=== PATIENT | male | born 1960 | race Caucasian/White ===

== ENCOUNTER 2021-05-13 07:38 | Observation (INO) ==
[2021-05-13] MEDS ORDERED: ONDANSETRON 4 MG/2 ML VIAL IV STA (07:54)
[2021-05-13] MEDS ORDERED: HYDROmorphone 2 MG/1 ML VIAL IV STA ×2 (07:54→08:34)
[2021-05-13 08:03] LABS: Basophils % 0.3 % (0.0-0.8); Eosinophils # 0.1 10*3/uL (0.0-0.87); Hematocrit 43.7 VOL% (42.0-52.0); Hemoglobin 14.6 GM/DL (14.0-18.0); Immature Granulocytes % 0.6 %; Immature Granulocytes Absolute 0.05 #; Lymphocytes # 1.4 10*3/uL (1.4-4.0); Mean Corpuscular HGB Conc 33.4 GM/DL (32-36); Mean Corpuscular Volume 89.9 FL (87-102); Mean Platelet Volume 9.1 FL (9.6-12.0); Neutrophils % 77.1 % (38.7-73.9); Platelet Count 230 T/CUMM (130-400); Red Blood Count 4.86 MC/CUMM (3.8-5.5); Red Cell Distribution Width 12.4 % (9.3-17.3); White Blood Count 8.9 T/CUMM (4-12)
[2021-05-13 08:35] LABS: Albumin 3.9 G/DL (3.4-5.0); Bilirubin,Total 0.6 MG/DL (0.20-1.00); Calcium 8.8 MG/DL (8.5-10.1); Potassium 3.8 MMOL/L (3.5-5.1); Total Protein 7.7 G/DL (6.4-8.2)
[2021-05-13] MEDS ORDERED: ALUM/MAG/SIMETH/LIDO VISC 1:1 30 ML BOTTLE PO STA (12:48)
[2021-05-13] MEDS ORDERED: KETOROLAC 30 MG/1 ML VIAL IV STA (13:34)
[2021-05-13] MEDS ORDERED: ONDANSETRON 4 MG/2 ML VIAL IV PRN (16:14)
[2021-05-13] MEDS: DEXTROSE 5% NACL 0.45% 1,000 ML IV SCH (19:12)
[2021-05-13] MEDS: HYDROmorphone 2 MG/1 ML VIAL IV PRN (19:54)
[2021-05-14] MEDS: HYDROmorphone 2 MG/1 ML VIAL IV PRN ×2 (00:12→04:35)
[2021-05-14] MEDS: DEXTROSE 5% NACL 0.45% 1,000 ML IV SCH (03:43)
[2021-05-14 05:43] LABS: Basophils % 0.2 % (0.0-0.8); Hematocrit 42.1 VOL% (42.0-52.0); Immature Granulocytes % 0.5 %; Immature Granulocytes Absolute 0.08 #; Lymphocytes # 1.2 10*3/uL (1.4-4.0); Lymphocytes % 7.6 % (21.2-54.2); Mean Corpuscular HGB Conc 33.3 GM/DL (32-36); Mean Corpuscular Volume 91.3 FL (87-102); Mean Platelet Volume 10.7 FL (9.6-12.0); Monocytes % 7.1 % (1.7-12.7); Neutrophils % 84.6 % (38.7-73.9); Red Blood Count 4.61 MC/CUMM (3.8-5.5); Red Cell Distribution Width 12.4 % (9.3-17.3)
[2021-05-14 06:10] LABS: Platelet Count 152 T/CUMM (130-400); White Blood Count 15.6 T/CUMM (4-12)
[2021-05-14] MEDS ORDERED: ONDANSETRON 4 MG/2 ML VIAL ONE (08:22)
[2021-05-14] MEDS ORDERED: SEVOFLURANE 1 UNIT/15 MINUTE INH ONE ×2 (08:22→10:18)
[2021-05-14] MEDS ORDERED: propofoL 200 MG/20 ML VIAL IV ONE (08:22)
[2021-05-14] MEDS ORDERED: ACETAMINOPHEN INJ 1,000 MG/100 ML VIAL IV ONE (08:22)
[2021-05-14] MEDS ORDERED: LIDOCAINE 2% 5 ML VIAL ONE (08:22)
[2021-05-14] MEDS ORDERED: ROCURONIUM 50 MG/5 ML VIAL IV ONE (08:22)
[2021-05-14] MEDS ORDERED: fentaNYL 100 MCG/2 ML VIAL ONE (08:22)
[2021-05-14] MEDS ORDERED: DEXAMETHASONE 4 MG/1 ML VIAL ONE (08:22)
[2021-05-14] MEDS ORDERED: TISSUE ADHESIVE 1 EACH APPLICATOR TOP ONE (08:29)
[2021-05-14] MEDS ORDERED: BUPIVACAINE MPF 0.25% 30 ML VIAL ONE (08:29)
[2021-05-14] MEDS ORDERED: LIDOCAINE 1%/EPI INJ 20 ML VIAL ONE (08:29)
[2021-05-14] MEDS ORDERED: MIDAZOLAM 2 MG/2 ML VIAL ONE (08:51)
[2021-05-14] MEDS: ENOXAPARIN 40 MG/0.4 ML SYRINGE SUBCUT SCH (09:00)
[2021-05-14] MEDS: PANTOPRAZOLE 40 MG TABLET PO SCH (09:00)
[2021-05-14] MEDS ORDERED: KETOROLAC 30 MG/1 ML VIAL ONE (09:04)
[2021-05-14] MEDS ORDERED: GLYCOPYRROLATE 0.4 MG/2 ML VIAL ONE (09:23)
[2021-05-14] MEDS ORDERED: LACTATED RINGERS 1,000 ML IV ONE (09:23)
[2021-05-14] MEDS ORDERED: NEOSTIGMINE 10 MG/10 ML VIAL ONE (09:23)
[2021-05-14] MEDS ORDERED: PHENYLEPHRINE 1 MG/10 ML SYRINGE IV ONE (09:25)
[2021-05-14] MEDS ORDERED: HYDROmorphone 2 MG/1 ML VIAL IV PRN (09:42)
[2021-05-14] MEDS ORDERED: ONDANSETRON 4 MG/2 ML VIAL IV PRN (09:42)
[2021-05-15 05:04] LABS: Basophils % 0.1 % (0.0-0.8); Hematocrit 42.7 VOL% (42.0-52.0); Hemoglobin 14.1 GM/DL (14.0-18.0); Immature Granulocytes % 0.5 %; Immature Granulocytes Absolute 0.07 #; Lymphocytes # 1.1 10*3/uL (1.4-4.0); Lymphocytes % 8.3 % (21.2-54.2); Mean Corpuscular Volume 91.6 FL (87-102); Mean Platelet Volume 9.6 FL (9.6-12.0); Neutrophils % 85.1 % (38.7-73.9); Platelet Count 200 T/CUMM (130-400); Red Blood Count 4.66 MC/CUMM (3.8-5.5); Red Cell Distribution Width 12.3 % (9.3-17.3); White Blood Count 13.1 T/CUMM (4-12)
[2021-05-15 05:22] LABS: Calcium 8.9 MG/DL (8.5-10.1)
[2021-05-15 08:27] VITALS: BP 155/80
[2021-05-15] MEDS: ENOXAPARIN 40 MG/0.4 ML SYRINGE SUBCUT SCH (09:41)
[2021-05-15] MEDS: PANTOPRAZOLE 40 MG TABLET PO SCH (09:41)
[2021-05-15] MEDS ORDERED: DOCUSATE SODIUM 100 MG CAPSULE PO PRN (10:15)
[2021-05-15] MEDS ORDERED: TAMSULOSIN 0.4 MG CAPSULE PO SCH (10:30)
== END 2021-05-15 12:32 | disposition home or self-care (01) ==
LOC: N.TELES 07:38 → N.ED 07:38 → N.TELES 18:41
PROVIDERS: ADMIT Surgery; ATTEND Surgery